=== PATIENT | male | born 1985 | race Two or more races ===

== ENCOUNTER 2016-07-27 20:16 | Emergency (ER) | payer OTHER ==
[~2016-07-27] VITALS: Ht 170.2 cm; Wt 61.2 kg
[2016-07-27] MEDS ORDERED: NKM (20:27)
[2016-07-27] MEDS ORDERED: Methocarbamol 750mg tab ORAL ONE (20:45)
[2016-07-27] MEDS ORDERED: Ketorolac 60mg Inj IM ONE (20:45)
--- NOTE | 2016-07-27 20:56 | Emergency Room Report ---
History of Present Illness General Chief Complaint: Lower Back Pain or Injury Source: Patient Present Illness HPI 31YOM walk in with lower back and left wrist pain and he accidentally fell at work. 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 His partner slipped and he got "launched into the air" and landed on lower back and left wrist. Not sure if he braced himself with left hand. Denies hitting head, LOC, other injury, open wounds. Allergies: Coded Allergies: No Known Allergies (Unverified , 07/27/16) Patient History Past Medical History: none Past Surgical History: none Pertinent Family History: none Social History: Denies: alcohol use, drug use, smoking Immunizations: UTD Reviewed Nursing Documentation: PMH: Agreed, PSxH: Agreed Nursing Documentation-PMH Past Medical History: No Stated History Review of Systems All Other Systems: negative except mentioned in HPI Physical Exam Vital Signs Date Time Temp Pulse Resp B/P Pulse Ox O2 Delivery O2 Flow Rate FiO2 07/27/16 20:27 97.5 67 16 126/85 98 Room Air Sp02 EP Interpretation: reviewed, normal General Appearance: normal inspection, well appearing, no apparent distress, alert, GCS 15, non-toxic Head: normocephalic, atraumatic Eyes: bilateral eye EOMI, bilateral eye PERRL ENT: normal ENT inspection, hearing grossly normal, normal voice Neck: normal inspection, full range of motion, supple, no bony tend Respiratory: normal inspection, lungs clear, normal breath sounds, no respiratory distress, no retraction, no wheezing Cardiovascular #1: regular rate, rhythm, no edema Gastrointestinal: normal inspection, normal bowel sounds, non tender, soft, no guarding, no hernia Genitourinary: no CVA tenderness Musculoskeletal: normal inspection, normal range of motion, Rehana's Sign negative, other - LS spine: 3cm abasion midline. Left wrist: no obvious trauma or deformity. Mild ttp. Neurologic: normal inspection, alert, oriented x3, responsive, orthopedic assistant III-XII nml as tested, motor strength/tone normal, speech normal Psychiatric: normal inspection, judgement/insight normal, mood/affect normal Skin: normal inspection, normal color, no rash Medical Decision Making Diagnostic Impression: Primary Impression: Unspecified injury of lower back, sequela Additional Impression: Left wrist injury Qualified Codes: S69.92XA - Unspecified injury of left wrist, hand and finger( s), initial encounter ER Course No acute traumatic injury on ED review of xrays of LS spine and left wrist Analgesia provided in ED DC home RICE PMD followup as needed Other X-Ray Diagnostic Results X-Ray ordered: LS spine # of Views/Limited Vs Complete: 3 View Interpretation: no fractures, no dislocation, no soft tissue swelling Indication: Pain Impression: No acute disease Date Electronically Signed: Jul 27, 2016 Time Electronically Signed: 20:55 Interpreting ER Physician: Keith CT/MRI/US Diagnostic Results CT/MRI/US Diagnostic Results : Imaging Test Ordered: left wrist Impression 3 views ED review No acute fx, dislocation or soft tissue swelling Last Vital Signs Date Time Temp Pulse Resp B/P Pulse Ox O2 Delivery O2 Flow Rate FiO2 07/27/16 20:27 97.5 67 16 126/85 98 Room Air Status: improved Disposition: HOME, SELF-CARE Scripts Methocarbamol* (ROBAXIN-750*) 750 Mg Tablet 750 MG PO TID for 7 Days, #30 TAB 0 Refills Prov: IJEOMA RITCHIE M.D. 07/27/16 Ibuprofen* (MOTRIN*) 600 Mg Tablet 600 MG ORAL THREE TIMES A DAY for For Pain for 7 Days, #30 TAB 0 Refills Prov: IJEOMA RITCHIE M.D. 07/27/16 IJEOMA RITCHIE M.D. Jul 27, 2016 20:56
[2016-07-27 21:00] VITALS: BP 126/85
[2016-07-27] MEDS ORDERED: ROBAXIN-750750 MG PO (21:00)
[2016-07-27] MEDS ORDERED: IBUPROFEN600 MG ORAL (21:00)
[2016-07-27 21:29] VITALS: BP 126/85
--- NOTE | 2016-07-28 09:36 | Diagnostic Imaging Report ---
Indication: Left wrist pain Technique: XRAY WRIST MIN 3V LEFT Comparison: None Findings: There is no acute fracture or dislocation. Bone mineralization is normal. Soft tissues are grossly unremarkable Impression: No acute osseous abnormality.
--- NOTE | 2016-07-28 09:36 | Diagnostic Imaging Report ---
Indication: Back pain Technique: Lumbar spine 3 views Comparison: None Findings: There is no acute fracture. Lumbar alignment is within normal limits. Bone mineralization is normal. Impression: No acute osseous abnormality.
== END 2016-07-27 21:29 | disposition home or self-care (01) ==
LOC: EMR 21:01
DX: S69.82XA Other specified injuries of left wrist, hand and finger(s), initial encounter (principal); S39.82XA Other specified injuries of lower back, initial encounter; W19.XXXA Unspecified fall, initial encounter; Y92.69 Other specified industrial and construction area as the place of occurrence of the external cause; Y99.0 Civilian activity done for income or pay
CPT/HCPCS: 72020; 96372; 99284